=== PATIENT | male | born 1975 | race African-American/Black ===

== ENCOUNTER 2017-06-29 11:07 | Day surgery (SDC) | payer OTHER ==
[~2017-06-29] VITALS: Ht 190.5 cm; Wt 88.9 kg
[~2017-06-29 11:07] MED LIST: Amoxicillin PO; NOHOMEMEDS; oxyCODONE PO
[2017-06-29 17:50] VITALS: BP 155/78
[2017-06-29 19:05] VITALS: BP 123/64
== END 2017-06-29 19:30 | disposition home or self-care (01) ==
LOC: SDC 11:07
DX: M20.12 Hallux valgus (acquired), left foot (principal); M20.42 Other hammer toe(s) (acquired), left foot; M21.6X2 Other acquired deformities of left foot; M19.90 Unspecified osteoarthritis, unspecified site
CPT/HCPCS: 73630; 76000; C1713; J0690; J1100; J1170; J2250; J2405; J3010; S0020